=== PATIENT | male | born 1990 | race Caucasian/White ===

== ENCOUNTER 2019-01-09 05:35 | Emergency (ER) | payer OTHER ==
[2019-01-09] MEDS ORDERED: Bacitracin Oint 1 GM U/D Packet TOP ONE (05:47)
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
[2019-01-09 07:17] VITALS: BP 113/46
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
== END 2019-01-09 07:12 ==
LOC: MW.ED 05:35
DX: S01.511A Laceration without foreign body of lip, initial encounter (principal); Z88.1 Allergy status to other antibiotic agents; Z88.0 Allergy status to penicillin; W50.0XXA Accidental hit or strike by another person, initial encounter
CPT/HCPCS: 70150; 70150-26; 70450; 70450-26; 99284-25

== ENCOUNTER 2019-03-22 00:08 | Emergency (ER) | payer OTHER ==
[2019-03-22] MEDS ORDERED: Morphine 2 MG/ML Syringe IVPUSH ONE (00:21)
--- NOTE | 2019-03-22 00:41 | EDM.PDOC ---
ED HPI GENERAL MEDICAL PROBLEM - General Chief Complaint: Upper Extremity Injury/Pain Stated Complaint: INFECTION IN LT ARM Time Seen by Provider: 03/22/19 00:40 Source of Information: Reports: Patient - History of Present Illness INITIAL COMMENTS - FREE TEXT/NARRATIVE: HISTORY AND PHYSICAL: History of present illness: [Patient presents with a small abrasions over his elbows he states that he has been resting his elbows on a rough wooden bar: [place] visiting, he has 2 small 1 cm lesions on each elbow on his right elbow he has a small olecranon bursitis as well as a superficial cellulitis of the skin approximately 2 inches in diameter no fever nausea vomiting chills sweats no exudate for culture Review of systems: As per history of present illness and below otherwise all systems reviewed and negative. Past medical history: As per history of present illness and as reviewed below otherwise noncontributory. Surgical history: As per history of present illness and as reviewed below otherwise noncontributory. Social history: No reported history of drug or alcohol abuse. Family history: As per history of present illness and as reviewed below otherwise noncontributory. Physical exam: HEENT: Atraumatic, normocephalic, pupils reactive, negative for conjunctival pallor or scleral icterus, mucous membranes moist, throat clear, neck supple, nontender, trachea midline. Lungs: Clear to auscultation, breath sounds equal bilaterally, chest nontender. Heart: S1S2, regular, negative for clicks, rubs, or JVD. Abdomen: Soft, nondistended, nontender. Negative for masses or hepatosplenomegaly. Negative for costovertebral tenderness. Pelvis: Stable nontender. Genitourinary: Deferred. Rectal: Deferred. Extremities: Atraumatic, negative for cords or calf pain. Neurovascular unremarkable. Neuro: Awake, alert, oriented. Cranial nerves II through XII unremarkable. Cerebellum unremarkable. Motor and sensory unremarkable throughout. Exam nonfocal. Skin as per history of present illness otherwise unremarkable Diagnostics: [ x-ray right elbow 3 views ] Therapeutics: [ Bactrim double strength by mouth twice a day #20 no refill ] Impression: [ cellulitis Right olecranon bursitis ] Definitive disposition and diagnosis as appropriate pending reevaluation and review of above. Treatments SECTION LEADER: Reports: Acetaminophen right elbow Pain Score (Numeric/FACES): 7 - Related Data Allergies Allergy/AdvReac Type Severity Reaction Status Date / Time amoxicillin Allergy Hives Verified 03/22/19 00:19 Penicillins Allergy Hives Verified 03/22/19 00:19 Home Meds: Home Meds . [No Known Home Meds] 12/27/15 [History] Past Medical History - Past Health History Medical/Surgical History: Denies Medical/Surgical History HEENT History: Reports: None Cardiovascular History: Reports: None Respiratory History: Reports: None Gastrointestinal History: Reports: None Genitourinary History: Reports: None Neurological History: Reports: None Psychiatric History: Reports: None - Infectious Disease History Infectious Disease History: Reports: None - Past Surgical History HEENT Surgical History: Reports: None Musculoskeletal Surgical History: Reports: None Social & Family History - Family History Family Medical History: Noncontributory - Tobacco Use Smoking Status *Q: Never Smoker - Caffeine Use Caffeine Use: Reports: Coffee - Recreational Drug Use Recreational Drug Use: No - Living Situation & Occupation Occupation: Employed Review of Systems - Review of Systems Review Of Systems: See Below ED EXAM, GENERAL - Physical Exam Exam: See Below Course - Vital Signs Last Recorded V/S: Last Vital Signs Temp 98 F 03/22/19 00:12 Pulse 89 03/22/19 00:12 Resp 18 03/22/19 00:12 BP 144/90 H 03/22/19 00:12 Pulse Ox 98 03/22/19 00:12 - Orders/Labs/Meds Orders: Active Orders 24 hr Category Date Time Status Elbow Min 3V Rt [CR] Stat Exams 03/22/19 00:31 Taken Sulfamethoxazole/Trimethoprim [Septra DS] Med 03/22/19 00:54 Once 1 tab PO ONETIME ONE Meds: Medications Discontinued Medications Generic Name Dose Route Start Last Admin Trade Name Freq PRN Reason Stop Dose Admin Morphine Sulfate 2 mg 03/22/19 00:21 Morphine IVPUSH 03/22/19 00:22 ONETIME ONE Departure - Departure Time of Disposition: 00:56 Disposition: Home, Self-Care 01 Condition: Good Clinical Impression: Cellulitis - Discharge Information Referrals: PCP,None [Primary Care Provider] - Forms: ED Department Discharge Additional Instructions: Medication as prescribed Return if symptoms persist or worsen Follow-up with primary care in 2 weeks sooner as needed [facility] - [facility] [address] [place] [id number] The following information is given to patients seen in the emergency department who are being discharged to home. This information is to outline your options for follow-up care. We provide all patients seen in our emergency department with a follow-up referral. The need for follow-up, as well as the timing and circumstances, are variable depending upon the specifics of your emergency department visit. If you don't have a primary care physician on staff, we will provide you with a referral. We always advise you to contact your personal physician following an emergency department visit to inform them of the circumstance of the visit and for follow-up with them and/or the need for any referrals to a consulting specialist. The emergency department will also refer you to a specialist when appropriate. This referral assures that you have the opportunity for follow-up care with a specialist. All of these measure are taken in an effort to provide you with optimal care, which includes your follow-up. Under all circumstances we always encourage you to contact your private physician who remains a resource for coordinating your care. When calling for follow-up care, please make the office aware that this follow-up is from your recent emergency room visit. If for any reason you are refused follow-up, please contact the [facility] emergency department at and asked to speak to the emergency department charge nurse. - My Orders Last 24 Hours: My Active Orders 03/22/19 00:31 Elbow Min 3V Rt [CR] Stat 03/22/19 00:54 Sulfamethoxazole/Trimethoprim [Septra DS] 1 tab PO ONETIME ONE - Assessment/Plan Last 24 Hours: My Active Orders 03/22/19 00:31 Elbow Min 3V Rt [CR] Stat 03/22/19 00:54 Sulfamethoxazole/Trimethoprim [Septra DS] 1 tab PO ONETIME ONE
[2019-03-22] MEDS ORDERED: Sulfamethoxazole/Trimethoprim 800-160 MG Tab PO ONE (00:54)
[2019-03-22 01:15] VITALS: BP 125/72
--- NOTE | 2019-03-22 01:46 | CR ---
INDICATION: Pain and swelling. COMPARISON: None. FINDINGS/IMPRESSION: Right elbow, 3 views. Soft tissue swelling posteriorly and medially. No fracture, dislocation, bony erosion, or other osseous abnormality identified. No evidence of elbow joint effusion. Dictated by Lamin Kearney MD @ 03/22/2019 1:44:42 AM Dictated by: Lamin Kearney MD @ 03/22/2019 01:44:50 (Electronically Signed)
== END 2019-03-22 01:10 | disposition home or self-care (01) ==
LOC: MW.ED 00:08
DX: L03.113 Cellulitis of right upper limb (principal); L03.114 Cellulitis of left upper limb; Z88.1 Allergy status to other antibiotic agents; Z88.0 Allergy status to penicillin
CPT/HCPCS: 73080; 99283; A9270

== ENCOUNTER 2019-03-23 09:12 | Observation (INO) | payer OTHER ==
[2019-03-23] MEDS ORDERED: Sodium Chloride 0.9% 1,000 ML IV SCH ×2 (09:15→11:45)
--- NOTE | 2019-03-23 09:36 | EDM.PDOC ---
ED HPI GENERAL MEDICAL PROBLEM - General Chief Complaint: Upper Extremity Injury/Pain Stated Complaint: INFECTION GOING DOWN ARM Time Seen by Provider: 03/23/19 09:34 Source of Information: Reports: Patient - History of Present Illness INITIAL COMMENTS - FREE TEXT/NARRATIVE: HISTORY AND PHYSICAL: History of present illness: [Patient was seen previously with a small cellulitis involving the right elbow, he has been on 48 hours Bactrim double strength 8-10 with worsening of symptoms no current fever nausea vomiting chills sweats ] Review of systems: As per history of present illness and below otherwise all systems reviewed and negative. Past medical history: As per history of present illness and as reviewed below otherwise noncontributory. Surgical history: As per history of present illness and as reviewed below otherwise noncontributory. Social history: No reported history of drug or alcohol abuse. Family history: As per history of present illness and as reviewed below otherwise noncontributory. Physical exam: HEENT: Atraumatic, normocephalic, pupils reactive, negative for conjunctival pallor or scleral icterus, mucous membranes moist, throat clear, neck supple, nontender, trachea midline. Lungs: Clear to auscultation, breath sounds equal bilaterally, chest nontender. Heart: S1S2, regular, negative for clicks, rubs, or JVD. Abdomen: Soft, nondistended, nontender. Negative for masses or hepatosplenomegaly. Negative for costovertebral tenderness. Pelvis: Stable nontender. Genitourinary: Deferred. Rectal: Deferred. Extremities: Atraumatic, negative for cords or calf pain. Neurovascular unremarkable. Neuro: Awake, alert, oriented. Cranial nerves II through XII unremarkable. Cerebellum unremarkable. Motor and sensory unremarkable throughout. Exam nonfocal. Skin extending down right far forearm, worsening from previous edema present which was not present previously/induration elbow joint is freely movable there is appears to be a small olecranon bursitis associated Diagnostics: [CBC CMP blood cultures 2 ] Therapeutics: [ normal saline Vancomycin 1 g IV ] Impression: [ cellulitis right upper extremity ] Definitive disposition and diagnosis as appropriate pending reevaluation and review of above. Right Elbow Pain Score (Numeric/FACES): 6 - Related Data Allergies Allergy/AdvReac Type Severity Reaction Status Date / Time amoxicillin Allergy Hives Verified 03/23/19 09:21 Penicillins Allergy Hives Verified 03/23/19 09:21 Home Meds: Home Meds Sulfamethoxazole/Trimethoprim [Bactrim Ds Tablet] 1 each PO BID 03/23/19 [ History] Past Medical History - Past Health History Medical/Surgical History: Denies Medical/Surgical History HEENT History: Reports: None Cardiovascular History: Reports: None Respiratory History: Reports: None Gastrointestinal History: Reports: None Genitourinary History: Reports: None Neurological History: Reports: None Psychiatric History: Reports: None Dermatologic History: Reports: Cellulitis - Infectious Disease History Infectious Disease History: Reports: None - Past Surgical History HEENT Surgical History: Reports: None Musculoskeletal Surgical History: Reports: None Social & Family History - Family History Family Medical History: Noncontributory - Tobacco Use Smoking Status *Q: Never Smoker - Caffeine Use Caffeine Use: Reports: None - Recreational Drug Use Recreational Drug Use: No - Living Situation & Occupation Occupation: Employed Review of Systems - Review of Systems Review Of Systems: See Below ED EXAM, GENERAL - Physical Exam Exam: See Below Course - Vital Signs Last Recorded V/S: Last Vital Signs Temp 97.8 F 03/23/19 09:22 Pulse 84 03/23/19 09:22 Resp 18 03/23/19 09:22 BP 130/83 03/23/19 09:22 Pulse Ox 98 03/23/19 09:22 - Orders/Labs/Meds Orders: Active Orders 24 hr Category Date Time Status CULTURE BLOOD [BC] Stat Lab 03/23/19 10:00 Received CULTURE BLOOD [BC] Stat Lab 03/23/19 10:21 Received Sodium Chloride 0.9% [Normal Saline] 1,000 ml Med 03/23/19 09:15 Active IV STAT Blood Culture x2 Reflex Set [OM.PC] Stat Oth 03/23/19 09:15 Ordered Medication Orders Sodium Chloride (Normal Saline) 1,000 mls @ 125 mls/hr IV STAT GHASSAN Last Admin: 03/23/19 09:58 Dose: 125 mls/hr Labs: Laboratory Tests 03/23/19 03/23/19 Range/Units 10:00 10:00 WBC 11.09 H (4.0-11.0) K/uL RBC 4.68 (4.50-5.90) M/uL Hgb 15.1 (13.0-17.0) g/dL Hct 44.2 (38.0-50.0) % MCV 94.4 (80.0-98.0) fL MCH 32.3 H (27.0-32.0) pg MCHC 34.2 (31.0-37.0) g/dL RDW Std Deviation 43.7 (28.0-62.0) fl RDW Coeff of Rylee 13 (11.0-15.0) % Plt Count 107 L (150-400) K/uL MPV 12.10 H (7.40-12.00) fL Neut % (Auto) 76.6 (48.0-80.0) % Lymph % (Auto) 12.7 L (16.0-40.0) % [place] % (Auto) 8.0 (0.0-15.0) % Eos % (Auto) 2.4 (0.0-7.0) % Baso % (Auto) 0.3 (0.0-1.5) % Neut # (Auto) 8.5 H (1.4-5.7) K/uL Lymph # (Auto) 1.4 (0.6-2.4) K/uL [place] # (Auto) 0.9 H (0.0-0.8) K/uL Eos # (Auto) 0.3 (0.0-0.7) K/uL Baso # (Auto) 0.0 (0.0-0.1) K/uL Nucleated RBC % 0.0 /100WBC Nucleated RBCs # 0 K/uL Sodium 136 (136-148) mmol/L Potassium 4.1 (3.5-5.1) mmol/L Chloride 101 (98-107) mmol/L Carbon Dioxide 27.0 (21.0-32.0) mmol/L BUN 11 (7.0-18.0) mg/dL Creatinine 1.0 (0.8-1.3) mg/dL Est Cr Clr Drug Dosing 119.63 mL/min Estimated GFR (MDRD) > 60.0 ml/min Glucose 85 (74-106) mg/dL Calcium 9.4 (8.5-10.1) mg/dL Total Bilirubin 1.1 H (0.2-1.0) mg/dL AST 25 (15-37) IU/L ALT 37 (14-63) IU/L Alkaline Phosphatase 35 L (46-116) U/L Total Protein 8.5 H (6.4-8.2) g/dL Albumin 4.2 (3.4-5.0) g/dL Globulin 4.3 H (2.6-4.0) g/dL Albumin/Globulin Ratio 1.0 (0.9-1.6) Meds: Medications Generic Name Dose Route Start Last Admin Trade Name Freq PRN Reason Stop Dose Admin Sodium Chloride 1,000 mls @ 125 mls/hr 03/23/19 09:15 03/23/19 09:58 Normal Saline IV 125 mls/hr STAT GHASSAN Administration Discontinued Medications Generic Name Dose Route Start Last Admin Trade Name Freq PRN Reason Stop Dose Admin Vancomycin HCl 1 gm/ Sodium 250 mls @ 250 mls/hr 03/23/19 09:26 03/23/19 10: 08 Chloride IV 03/23/19 10:25 Not Given ONETIME ONE Vancomycin HCl 1 gm/ Sodium 250 mls @ 250 mls/hr 03/23/19 09:45 03/23/19 09: 58 Chloride IV 03/23/19 10:44 250 mls/hr ONETIME ONE Administration Sodium Chloride Confirm 03/23/19 09:41 03/23/19 10:08 Normal Saline Administered 03/23/19 09:42 Not Given Dose 250 mls @ as directed .ROUTE .STK-MED ONE Vancomycin HCl Confirm 03/23/19 09:39 03/23/19 10:08 Vancomycin Administered 03/23/19 09:40 Not Given Dose 1 gm .ROUTE .STK-MED ONE Departure - Departure Time of Disposition: 11:33 Disposition: Refer to Observation Condition: Fair Clinical Impression: Cellulitis - Discharge Information Referrals: PCP,None [Primary Care Provider] - Forms: ED Department Discharge - My Orders Last 24 Hours: My Active Orders 03/23/19 09:15 Sodium Chloride 0.9% [Normal Saline] 1,000 ml IV STAT Blood Culture x2 Reflex Set [OM.PC] Stat 03/23/19 10:00 CULTURE BLOOD [BC] Stat 03/23/19 10:21 CULTURE BLOOD [BC] Stat - Assessment/Plan Last 24 Hours: My Active Orders 03/23/19 09:15 Sodium Chloride 0.9% [Normal Saline] 1,000 ml IV STAT Blood Culture x2 Reflex Set [OM.PC] Stat 03/23/19 10:00 CULTURE BLOOD [BC] Stat 03/23/19 10:21 CULTURE BLOOD [BC] Stat
[2019-03-23] MEDS ORDERED: Vancomycin 1 GM SDV ONE (09:39)
[2019-03-23] MEDS ORDERED: Sodium Chloride 0.9% 250 ML ONE (09:41)
[2019-03-23 10:37] LABS: CHLORIDE,CL 101 mmol/L (98-107); SODIUM,NA 136 mmol/L (136-148)
--- NOTE | 2019-03-23 11:41 | PCM.HP ---
H&P History of Present Illness - General Date of Service: 03/23/19 Admit Problem/Dx: Admission Diagnosis/Problem Admission Diagnosis/Problem Cellulitis Source of Information: Patient History Limitations: Reports: No Limitations - History of Present Illness Initial Comments - Free Text/Narative: The patient is an otherwise healthy 28-year-old gentleman who had presented to the emergency department today with a complaint of swelling, redness and tenderness of his right arm. Several days ago the patient had an area small cellulitis involving his right elbow. He reportedly had gone swimming in a river in [place]. The patient also had been on 48 hours of double strength Bactrim. The patient says this has been getting worse. The patient had an area on his elbow demarcated with pen and the edema has gone more distally. The patient has denied any fever or chills. He has been in good health otherwise and has not been taking any other medications chronically. Onset of Symptoms: Reports: Gradual Duration of Symptoms: Reports: Day(s):, Getting Worse Location: Reports: Upper Extremity, Right Quality: Reports: Ache, Stabbing Severity: Moderate Improves with: Reports: Rest Worsens with: Reports: Movement Associated Symptoms: Reports: No Other Symptoms Right Elbow Pain Score (Numeric/FACES): 6 - Related Data Allergies/Adverse Reactions: Allergies Allergy/AdvReac Type Severity Reaction Status Date / Time amoxicillin Allergy Hives Verified 03/23/19 09:21 Penicillins Allergy Hives Verified 03/23/19 09:21 Home Medications: Home Meds Sulfamethoxazole/Trimethoprim [Bactrim Ds Tablet] 1 each PO BID 03/23/19 [ History] Past Medical History - Past Health History Medical/Surgical History: Denies Medical/Surgical History HEENT History: Reports: None Cardiovascular History: Reports: None Respiratory History: Reports: None Gastrointestinal History: Reports: None Genitourinary History: Reports: None Neurological History: Reports: None Psychiatric History: Reports: None Dermatologic History: Reports: Cellulitis - Infectious Disease History Infectious Disease History: Reports: None - Past Surgical History HEENT Surgical History: Reports: None Musculoskeletal Surgical History: Reports: None Social & Family History - Family History Family Medical History: Noncontributory - Tobacco Use Smoking Status *Q: Never Smoker - Caffeine Use Caffeine Use: Reports: None - Recreational Drug Use Recreational Drug Use: No - Living Situation & Occupation Occupation: Employed H&P Review of Systems - Review of Systems: Review Of Systems: See Below General: Reports: No Symptoms HEENT: Reports: No Symptoms Pulmonary: Reports: No Symptoms Cardiovascular: Reports: No Symptoms Gastrointestinal: Reports: No Symptoms Genitourinary: Reports: No Symptoms Musculoskeletal: Reports: Arm Pain Skin: Reports: Erythema Psychiatric: Reports: No Symptoms Neurological: Reports: No Symptoms Hematologic/Lymphatic: Reports: No Symptoms Immunologic: Reports: No Symptoms Exam - Exam Exam: See Below - Vital Signs Vital Signs: Last Vital Signs Temp 36.6 C 03/23/19 09:22 Pulse 84 03/23/19 09:22 Resp 18 03/23/19 09:22 BP 130/83 03/23/19 09:22 Pulse Ox 98 03/23/19 09:22 Weight: 90.718 kg - Exam Quality Assessment: No: Supplemental Oxygen General: Alert, Oriented, Cooperative HEENT: Conjunctiva Clear, EACs Clear, EOMI, Mucosa Moist & [place], Pupils Equal, PERRLA Neck: Supple, Trachea Midline Lungs: Clear to Auscultation, Normal Respiratory Effort Cardiovascular: Regular Rate, Regular Rhythm GI/Abdominal Exam: Normal Bowel Sounds, Soft, No Distention Back Exam: Normal Inspection, Full Range of Motion Extremities: Joint Swelling (Right elbow, olecranon process), Arm Pain, Increased Warmth. No: Normal Inspection Skin: Other (Area cellulitis right elbow) Neurological: Cranial Nerves Intact Neuro Extensive - Mental Status: Alert, Oriented x3 Psychiatric: Alert, Normal Affect, Normal Mood - Patient Data Lab Results Last 24 hrs: Laboratory Results - last 24 hr 03/23/19 03/23/19 Range/Units 10:00 10:00 WBC 11.09 H (4.0-11.0) K/uL RBC 4.68 (4.50-5.90) M/uL Hgb 15.1 (13.0-17.0) g/dL Hct 44.2 (38.0-50.0) % MCV 94.4 (80.0-98.0) fL MCH 32.3 H (27.0-32.0) pg MCHC 34.2 (31.0-37.0) g/dL RDW Std Deviation 43.7 (28.0-62.0) fl RDW Coeff of Rylee 13 (11.0-15.0) % Plt Count 107 L (150-400) K/uL MPV 12.10 H (7.40-12.00) fL Neut % (Auto) 76.6 (48.0-80.0) % Lymph % (Auto) 12.7 L (16.0-40.0) % [place] % (Auto) 8.0 (0.0-15.0) % Eos % (Auto) 2.4 (0.0-7.0) % Baso % (Auto) 0.3 (0.0-1.5) % Neut # (Auto) 8.5 H (1.4-5.7) K/uL Lymph # (Auto) 1.4 (0.6-2.4) K/uL [place] # (Auto) 0.9 H (0.0-0.8) K/uL Eos # (Auto) 0.3 (0.0-0.7) K/uL Baso # (Auto) 0.0 (0.0-0.1) K/uL Nucleated RBC % 0.0 /100WBC Nucleated RBCs # 0 K/uL Sodium 136 (136-148) mmol/L Potassium 4.1 (3.5-5.1) mmol/L Chloride 101 (98-107) mmol/L Carbon Dioxide 27.0 (21.0-32.0) mmol/L BUN 11 (7.0-18.0) mg/dL Creatinine 1.0 (0.8-1.3) mg/dL Est Cr Clr Drug Dosing 119.63 mL/min Estimated GFR (MDRD) > 60.0 ml/min Glucose 85 (74-106) mg/dL Calcium 9.4 (8.5-10.1) mg/dL Total Bilirubin 1.1 H (0.2-1.0) mg/dL AST 25 (15-37) IU/L ALT 37 (14-63) IU/L Alkaline Phosphatase 35 L (46-116) U/L Total Protein 8.5 H (6.4-8.2) g/dL Albumin 4.2 (3.4-5.0) g/dL Globulin 4.3 H (2.6-4.0) g/dL Albumin/Globulin Ratio 1.0 (0.9-1.6) Result Diagrams: 03/23/19 10:00 03/23/19 10:00 - Problem List (1) Cellulitis SNOMED Code(s): 460998252 ICD Code: L03.90 - CELLULITIS, UNSPECIFIED Status: Acute Priority: High Current Visit: Yes Qualifiers: Site of cellulitis: extremity Site of cellulitis of extremity: upper extremity Laterality: right Qualified Code(s): L03.113 - Cellulitis of right upper limb (2) Thrombocytopenia SNOMED Code(s): 787443223 ICD Code: D69.6 - THROMBOCYTOPENIA, UNSPECIFIED Status: Acute Priority: High Current Visit: Yes Problem List Initiated/Reviewed/Updated: Yes Orders Last 24hrs: Active Orders 24 hr Category Date Time Status Admission Status [Patient Status] [ADT] Stat ADT 03/23/19 11:33 Active CULTURE BLOOD [BC] Stat Lab 03/23/19 10:00 Received CULTURE BLOOD [BC] Stat Lab 03/23/19 10:21 Received Sodium Chloride 0.9% [Normal Saline] 1,000 ml Med 03/23/19 09:15 Active IV STAT Blood Culture x2 Reflex Set [OM.PC] Stat Oth 03/23/19 09:15 Ordered Medication Orders Sodium Chloride (Normal Saline) 1,000 mls @ 125 mls/hr IV STAT GHASSAN Last Admin: 03/23/19 09:58 Dose: 125 mls/hr Assessment/Plan Comment:: The patient is an otherwise healthy 28-year-old gentleman who will be admitted under observation secondary to failed outpatient treatment with regards to cellulitis of his right elbow. The patient does not have any signs or symptoms which would be consistent with necrotizing fasciitis or sepsis at this point. The patient was started on vancomycin and this will be continued. We'll order pharmacy to dose. I've ordered repeat laboratory studies. The patient will also be monitored with regards to his thrombocytopenia as that this might have been caused by the patient's use of Bactrim. The patient will also be kept on DVT prophylaxis with the use of SCDs. This is secondary to the patient's thrombocytopenia. The patient is encouraged to ambulate.
[2019-03-23] MEDS ORDERED: Ondansetron 4 MG Tab.DIS PO PRN (11:45)
[2019-03-23] MEDS ORDERED: Morphine 2 MG/ML Syringe IVPUSH PRN (11:45)
[2019-03-23] MEDS ORDERED: Acetaminophen 325 MG Tab PO PRN (11:45)
[2019-03-23] MEDS: Nicotine 14 MG/24 Hr Patch TRDERM SCH (13:24)
[2019-03-23] MEDS: oxyCODONE 5 MG Tab PO PRN ×3 (14:26→23:39)
[2019-03-23] MEDS: Vancomycin 1.5 GM in Sodium Chloride 0.9% 500 ML IV SCH (21:36)
[2019-03-24] MEDS: Vancomycin 1.5 GM in Sodium Chloride 0.9% 500 ML IV SCH (04:13)
[2019-03-24 06:04] LABS: CHLORIDE,CL 102 mmol/L (98-107); SODIUM,NA 136 mmol/L (136-148)
--- NOTE | 2019-03-24 08:12 | PCM.PN ---
- Patient Data Vitals - Most Recent: Last Vital Signs Temp 36.6 C 03/24/19 04:00 Pulse 83 03/24/19 04:00 Resp 17 03/24/19 04:00 BP 116/58 L 03/24/19 04:00 Pulse Ox 94 L 03/24/19 04:00 Weight - Most Recent: 99.019 kg I&O - Last 24 Hours: Intake & Output 03/23/19 03/24/19 03/24/19 22:59 06:59 14:59 Intake Total 2083 3167 Output Total 6090 1515 Balance 411 442 Lab Results Last 24 Hours: Laboratory Results - last 24 hr 03/23/19 03/23/19 03/23/19 Range/Units 10:00 10:00 10:00 WBC 11.09 H (4.0-11.0) K/uL RBC 4.68 (4.50-5.90) M/uL Hgb 15.1 (13.0-17.0) g/dL Hct 44.2 (38.0-50.0) % MCV 94.4 (80.0-98.0) fL MCH 32.3 H (27.0-32.0) pg MCHC 34.2 (31.0-37.0) g/dL RDW Std Deviation 43.7 (28.0-62.0) fl RDW Coeff of Rylee 13 (11.0-15.0) % Plt Count 107 L (150-400) K/uL MPV 12.10 H (7.40-12.00) fL Neut % (Auto) 76.6 (48.0-80.0) % Lymph % (Auto) 12.7 L (16.0-40.0) % [place] % (Auto) 8.0 (0.0-15.0) % Eos % (Auto) 2.4 (0.0-7.0) % Baso % (Auto) 0.3 (0.0-1.5) % Neut # (Auto) 8.5 H (1.4-5.7) K/uL Lymph # (Auto) 1.4 (0.6-2.4) K/uL [place] # (Auto) 0.9 H (0.0-0.8) K/uL Eos # (Auto) 0.3 (0.0-0.7) K/uL Baso # (Auto) 0.0 (0.0-0.1) K/uL Nucleated RBC % 0.0 /100WBC Nucleated RBCs # 0 K/uL ESR 13 (0-14) mm/hr Sodium 136 (136-148) mmol/L Potassium 4.1 (3.5-5.1) mmol/L Chloride 101 (98-107) mmol/L Carbon Dioxide 27.0 (21.0-32.0) mmol/L BUN 11 (7.0-18.0) mg/dL Creatinine 1.0 (0.8-1.3) mg/dL Est Cr Clr Drug Dosing 119.63 mL/min Estimated GFR (MDRD) > 60.0 ml/min Glucose 85 (74-106) mg/dL Calcium 9.4 (8.5-10.1) mg/dL Total Bilirubin 1.1 H (0.2-1.0) mg/dL AST 25 (15-37) IU/L ALT 37 (14-63) IU/L Alkaline Phosphatase 35 L (46-116) U/L Total Protein 8.5 H (6.4-8.2) g/dL Albumin 4.2 (3.4-5.0) g/dL Globulin 4.3 H (2.6-4.0) g/dL Albumin/Globulin Ratio 1.0 (0.9-1.6) 03/24/19 03/24/19 Range/Units 05:08 05:08 WBC 10.09 (4.0-11.0) K/uL RBC 4.33 L (4.50-5.90) M/uL Hgb 13.8 (13.0-17.0) g/dL Hct 41.5 (38.0-50.0) % MCV 95.8 (80.0-98.0) fL MCH 31.9 (27.0-32.0) pg MCHC 33.3 (31.0-37.0) g/dL RDW Std Deviation 44.7 (28.0-62.0) fl RDW Coeff of Rylee 13 (11.0-15.0) % Plt Count 186 (150-400) K/uL MPV 10.40 (7.40-12.00) fL Neut % (Auto) 66.8 (48.0-80.0) % Lymph % (Auto) 21.1 (16.0-40.0) % [place] % (Auto) 8.2 (0.0-15.0) % Eos % (Auto) 3.6 (0.0-7.0) % Baso % (Auto) 0.3 (0.0-1.5) % Neut # (Auto) 6.7 H (1.4-5.7) K/uL Lymph # (Auto) 2.1 (0.6-2.4) K/uL [place] # (Auto) 0.8 (0.0-0.8) K/uL Eos # (Auto) 0.4 (0.0-0.7) K/uL Baso # (Auto) 0.0 (0.0-0.1) K/uL Nucleated RBC % 0.0 /100WBC Nucleated RBCs # 0 K/uL ESR (0-14) mm/hr Sodium 136 (136-148) mmol/L Potassium 3.9 (3.5-5.1) mmol/L Chloride 102 (98-107) mmol/L Carbon Dioxide 25.3 (21.0-32.0) mmol/L BUN 10 (7.0-18.0) mg/dL Creatinine 1.0 (0.8-1.3) mg/dL Est Cr Clr Drug Dosing 119.63 mL/min Estimated GFR (MDRD) > 60.0 ml/min Glucose 102 (74-106) mg/dL Calcium 8.7 (8.5-10.1) mg/dL Total Bilirubin 0.7 (0.2-1.0) mg/dL AST 13 L (15-37) IU/L ALT 28 (14-63) IU/L Alkaline Phosphatase 28 L (46-116) U/L Total Protein 7.1 (6.4-8.2) g/dL Albumin 3.3 L (3.4-5.0) g/dL Globulin 3.8 (2.6-4.0) g/dL Albumin/Globulin Ratio 0.9 (0.9-1.6) Med Orders - Current: Current Medications Acetaminophen (Tylenol) 650 mg PO Q4H PRN PRN Reason: Pain (Mild 1-3)/fever Last Admin: 03/23/19 17:03 Dose: 325 mg Vancomycin HCl 1.5 gm/ Sodium (Chloride) 500 mls @ 333.333 mls/hr IV Q8H GHASSAN Last Admin: 03/24/19 04:13 Dose: 333.333 mls/hr Morphine Sulfate (Morphine) 2 mg IVPUSH Q2H PRN PRN Reason: Pain (severe 7-10) Stop: 03/24/19 11:47 Nicotine (Habitrol) 14 mg TRDERM DAILY [facility] Last Admin: 03/23/19 13:24 Dose: 14 mg Ondansetron HCl (Zofran Odt) 4 mg PO Q6H PRN PRN Reason: nausea, able to take PO Oxycodone HCl (Oxycodone) 5 mg PO Q4H PRN PRN Reason: Pain (moderate 4-6) Last Admin: 03/23/19 23:39 Dose: 5 mg Vancomycin HCl (Pharmacy To Dose - Vancomycin) 1 dose .XX ASDIRECTED [facility] Discontinued Medications Sodium Chloride (Normal Saline) 1,000 mls @ 125 mls/hr IV STAT [facility] Last Admin: 03/23/19 09:58 Dose: 125 mls/hr Vancomycin HCl 1 gm/ Sodium (Chloride) 250 mls @ 250 mls/hr IV ONETIME ONE Stop: 03/23/19 10:25 Last Admin: 03/23/19 10:08 Dose: Not Given Vancomycin HCl 1 gm/ Sodium (Chloride) 250 mls @ 250 mls/hr IV ONETIME ONE Stop: 03/23/19 10:44 Last Admin: 03/23/19 09:58 Dose: 250 mls/hr Sodium Chloride (Normal Saline) Confirm Administered Dose 250 mls @ as directed .ROUTE .STK-MED ONE Stop: 03/23/19 09:42 Last Admin: 03/23/19 10:08 Dose: Not Given Sodium Chloride (Normal Saline) 1,000 mls @ 100 mls/hr IV ASDIRECTED [facility] Stop: 03/24/19 00:12 Last Admin: 03/23/19 18:18 Dose: 100 mls/hr Vancomycin HCl (Vancomycin) Confirm Administered Dose 1 gm .ROUTE .STK-MED ONE Stop: 03/23/19 09:40 Last Admin: 03/23/19 10:08 Dose: Not Given - Problem List & Annotations (1) Cellulitis SNOMED Code(s): 609177643 Code(s): L03.90 - CELLULITIS, UNSPECIFIED Status: Acute Priority: High Current Visit: Yes Qualifiers: Site of cellulitis: extremity Site of cellulitis of extremity: upper extremity Laterality: right Qualified Code(s): L03.113 - Cellulitis of right upper limb (2) Thrombocytopenia SNOMED Code(s): 551799197 Code(s): D69.6 - THROMBOCYTOPENIA, UNSPECIFIED Status: Acute Priority: High Current Visit: Yes - My Orders Last 24 Hours: My Active Orders 03/23/19 11:45 Oxygen Therapy [RC] PRN Up ad Leeanna [RC] ASDIRECTED VTE/DVT Education [RC] PER UNIT ROUTINE Vital Signs [RC] Q4H Acetaminophen [Tylenol] 650 mg PO Q4H PRN Morphine 2 mg IVPUSH Q2H PRN Ondansetron [Zofran ODT] 4 mg PO Q6H PRN oxyCODONE 5 mg PO Q4H PRN VTE Pharmacological Contraindications [AST] Per Unit Routine Resuscitation Status Routine 03/23/19 11:46 Antiembolic Devices [RC] PER UNIT ROUTINE Sequential Compression Device [OM.PC] Per Unit Routine 03/23/19 13:00 Nicotine [Habitrol] 14 mg TRDERM DAILY 03/23/19 20:15 Pharmacy to Dose - Vancomycin 1 dose .XX ASDIRECTED 03/23/19 20:30 Vancomycin 1.5 gm Sodium Chloride 0.9% [Normal Saline] 500 ml IV Q8H 03/23/19 Dinner Regular Diet [DIET] - Plan Plan:: The patient is an otherwise healthy 28-year-old gentleman who will be admitted under observation secondary to failed outpatient treatment with regards to cellulitis of his right elbow. The patient does not have any signs or symptoms which would be consistent with necrotizing fasciitis or sepsis at this point. The patient was started on vancomycin and this will be continued. We'll order pharmacy to dose. I've ordered repeat laboratory studies. The patient will also be monitored with regards to his thrombocytopenia as that this might have been caused by the patient's use of Bactrim. The patient will also be kept on DVT prophylaxis with the use of SCDs. This is secondary to the patient's thrombocytopenia. The patient is encouraged to ambulate.
[2019-03-24] MEDS ORDERED: Linezolid 600 MG in Premix Bag 1 BAG IV SCH (08:15)
[2019-03-24] MEDS: Nicotine 14 MG/24 Hr Patch TRDERM SCH (08:30)
[2019-03-24] MEDS: oxyCODONE 5 MG Tab PO PRN (08:30)
--- NOTE | 2019-03-24 13:17 | PCM.DCSUM1 ---
Discharge Summary - Hospital Course Diagnosis: Stroke: No - Discharge Data Discharge Date: 03/24/19 Discharge Disposition: Home, Self-Care 01 Condition: Good - Discharge Diagnosis/Problem(s) (1) Cellulitis SNOMED Code(s): 221750591 ICD Code: L03.90 - CELLULITIS, UNSPECIFIED Status: Acute Priority: High Qualifiers: Site of cellulitis: extremity Site of cellulitis of extremity: upper extremity Laterality: right Qualified Code(s): L03.113 - Cellulitis of right upper limb (2) Thrombocytopenia SNOMED Code(s): 291175808 ICD Code: D69.6 - THROMBOCYTOPENIA, UNSPECIFIED Status: Acute Priority: High - Patient Summary/Data Hospital Course: The patient is a 28-year-old gentleman who had presented to the emergency department after failing outpatient treatment for cellulitis of his right elbow. [facility] [place] and had developed an infection and had been placed on Bactrim which did not help. Patient was admitted and started on vancomycin. The patient had tolerated the vancomycin without difficulty. Initially the patient's white blood cell count was mildly elevated at 11,000 and this had normalized by day of discharge. The patient was also noted to have thrombocytopenia which was likely secondary to the Bactrim. This had normalized by day of discharge. The patient had overall improvement in terms of erythema, induration and tenderness on examination. The patient's vital signs have been otherwise stable. He continued to improve rapidly throughout the short course of hospitalization. The patient was transitioned to Zyvox and he had tolerated this well. The patient had been given a prescription for Zyvox 600 mg by mouth twice a day. The patient had been recommended continue with his diet as tolerated. He is to have activity as tolerated. The patient will be discharged to follow-up with primary care physician. He has been hemodynamically stable and he is discharged with the recommendations listed above. - Patient Instructions Diet: Heart Healthy Diet Activity: As Tolerated Notify Provider of: Fever, Increased Pain - Discharge Plan *PRESCRIPTION DRUG MONITORING PROGRAM REVIEWED*: No *COPY OF PRESCRIPTION DRUG MONITORING REPORT IN PATIENT MILDRED: No Prescriptions/Med Rec: Linezolid [Zyvox] 600 mg PO Q12H #20 tab Home Medications: Home Meds Linezolid [Zyvox] 600 mg PO Q12H #20 tab 03/24/19 [Rx] Oxygen Therapy Mode: Room Air Patient Handouts: Linezolid tablets, Cellulitis, Adult, [id number] Referrals: Sariah Montoya DO [Resident] - 04/02/19 2:30 pm - Discharge Summary/Plan Comment DC Time >30 min.: Yes - General Info Date of Service: 03/24/19 Admission Dx/Problem (Free Text: Admission Diagnosis/Problem Admission Diagnosis/Problem Cellulitis right elbow Functional Status: Reports: Pain Controlled - Review of Systems General: Reports: No Symptoms HEENT: Reports: No Symptoms Pulmonary: Reports: No Symptoms Cardiovascular: Reports: No Symptoms Gastrointestinal: Reports: No Symptoms Genitourinary: Reports: No Symptoms Musculoskeletal: Reports: Arm Pain Skin: Reports: No Symptoms Neurological: Reports: No Symptoms Psychiatric: Reports: No Symptoms - Patient Data Vitals - Most Recent: Last Vital Signs Temp 36.7 C 03/24/19 07:30 Pulse 80 03/24/19 07:30 Resp 16 03/24/19 07:30 BP 111/68 03/24/19 07:30 Pulse Ox 95 03/24/19 07:30 Weight - Most Recent: 99.019 kg I&O - Last 24 hours: Intake & Output 03/23/19 03/24/19 03/24/19 22:59 06:59 14:59 Intake Total 2086 3167 300 Output Total 1678 2725 Balance 411 442 300 Lab Results - Last 24 hrs: Laboratory Results - last 24 hr 03/24/19 03/24/19 Range/Units 05:08 05:08 WBC 10.09 (4.0-11.0) K/uL RBC 4.33 L (4.50-5.90) M/uL Hgb 13.8 (13.0-17.0) g/dL Hct 41.5 (38.0-50.0) % MCV 95.8 (80.0-98.0) fL MCH 31.9 (27.0-32.0) pg MCHC 33.3 (31.0-37.0) g/dL RDW Std Deviation 44.7 (28.0-62.0) fl RDW Coeff of Rylee 13 (11.0-15.0) % Plt Count 186 (150-400) K/uL MPV 10.40 (7.40-12.00) fL Neut % (Auto) 66.8 (48.0-80.0) % Lymph % (Auto) 21.1 (16.0-40.0) % [place] % (Auto) 8.2 (0.0-15.0) % Eos % (Auto) 3.6 (0.0-7.0) % Baso % (Auto) 0.3 (0.0-1.5) % Neut # (Auto) 6.7 H (1.4-5.7) K/uL Lymph # (Auto) 2.1 (0.6-2.4) K/uL [place] # (Auto) 0.8 (0.0-0.8) K/uL Eos # (Auto) 0.4 (0.0-0.7) K/uL Baso # (Auto) 0.0 (0.0-0.1) K/uL Nucleated RBC % 0.0 /100WBC Nucleated RBCs # 0 K/uL Sodium 136 (136-148) mmol/L Potassium 3.9 (3.5-5.1) mmol/L Chloride 102 (98-107) mmol/L Carbon Dioxide 25.3 (21.0-32.0) mmol/L BUN 10 (7.0-18.0) mg/dL Creatinine 1.0 (0.8-1.3) mg/dL Est Cr Clr Drug Dosing 119.63 mL/min Estimated GFR (MDRD) > 60.0 ml/min Glucose 102 (74-106) mg/dL Calcium 8.7 (8.5-10.1) mg/dL Total Bilirubin 0.7 (0.2-1.0) mg/dL AST 13 L (15-37) IU/L ALT 28 (14-63) IU/L Alkaline Phosphatase 28 L (46-116) U/L Total Protein 7.1 (6.4-8.2) g/dL Albumin 3.3 L (3.4-5.0) g/dL Globulin 3.8 (2.6-4.0) g/dL Albumin/Globulin Ratio 0.9 (0.9-1.6) LUCY Results - Last 24 hrs: Microbiology 03/23/19 10:21 Aerobic Blood Culture - Preliminary Blood - Venous - Lab Draw NO GROWTH AFTER 1 DAY Anaerobic Blood Culture - Preliminary NO GROWTH AFTER 1 DAY 03/23/19 10:00 Aerobic Blood Culture - Preliminary Blood - Venous NO GROWTH AFTER 1 DAY Anaerobic Blood Culture - Preliminary NO GROWTH AFTER 1 DAY Med Orders - Current: Current Medications Acetaminophen (Tylenol) 650 mg PO Q4H PRN PRN Reason: Pain (Mild 1-3)/fever Last Admin: 03/23/19 17:03 Dose: 325 mg Linezolid 600 mg/ Premix 300 mls @ 300 mls/hr IV Q12H [facility] Last Admin: 03/24/19 08:29 Dose: 300 mls/hr Nicotine (Habitrol) 14 mg TRDERM DAILY [facility] Last Admin: 03/24/19 08:30 Dose: 14 mg Ondansetron HCl (Zofran Odt) 4 mg PO Q6H PRN PRN Reason: nausea, able to take PO Oxycodone HCl (Oxycodone) 5 mg PO Q4H PRN PRN Reason: Pain (moderate 4-6) Last Admin: 03/24/19 08:30 Dose: 5 mg Discontinued Medications Sodium Chloride (Normal Saline) 1,000 mls @ 125 mls/hr IV STAT [facility] Last Admin: 03/23/19 09:58 Dose: 125 mls/hr Vancomycin HCl 1 gm/ Sodium (Chloride) 250 mls @ 250 mls/hr IV ONETIME ONE Stop: 03/23/19 10:25 Last Admin: 03/23/19 10:08 Dose: Not Given Vancomycin HCl 1 gm/ Sodium (Chloride) 250 mls @ 250 mls/hr IV ONETIME ONE Stop: 03/23/19 10:44 Last Admin: 03/23/19 09:58 Dose: 250 mls/hr Sodium Chloride (Normal Saline) Confirm Administered Dose 250 mls @ as directed .ROUTE .STK-MED ONE Stop: 03/23/19 09:42 Last Admin: 03/23/19 10:08 Dose: Not Given Sodium Chloride (Normal Saline) 1,000 mls @ 100 mls/hr IV ASDIRECTED [facility] Stop: 03/24/19 00:12 Last Admin: 03/23/19 18:18 Dose: 100 mls/hr Vancomycin HCl 1.5 gm/ Sodium (Chloride) 500 mls @ 333.333 mls/hr IV Q8H [facility] Last Admin: 03/24/19 04:13 Dose: 333.333 mls/hr Morphine Sulfate (Morphine) 2 mg IVPUSH Q2H PRN PRN Reason: Pain (severe 7-10) Stop: 03/24/19 11:47 Vancomycin HCl (Vancomycin) Confirm Administered Dose 1 gm .ROUTE .STK-MED ONE Stop: 03/23/19 09:40 Last Admin: 03/23/19 10:08 Dose: Not Given - Exam Quality Assessment: Denies: Supplemental Oxygen General: Reports: Alert, Oriented, Cooperative, No Acute Distress HEENT: Reports: Pupils Equal, Pupils Reactive, EOMI, Mucous Membr. Moist/Wilsey Neck: Reports: Supple, Trachea Midline Lungs: Reports: Clear to Auscultation, Normal Respiratory Effort Cardiovascular: Reports: Regular Rate, Regular Rhythm GI/Abdominal Exam: Normal Bowel Sounds, Soft, No Distention Back Exam: Reports: Normal Inspection, Full Range of Motion Extremities: Arm Pain (Right elbow). No: Increased Warmth (Good range of motion ) Skin: Reports: Warm, Dry, Intact Neurological: Reports: No New Focal Deficit Psy/Mental Status: Reports: Alert, Normal Affect, Normal Mood *Q Meaningful Use (DIS) - VTE *Q VTE Pharmacological Contraindications *Q: Thrombocytopenia
[2019-03-24 13:29] VITALS: BP 120/66
--- NOTE | 2019-03-24 16:53 | CR ---
EXAMINATION: Right elbow HISTORY: Cellulitis COMPARISON: 03/22/2019 TECHNIQUE: 3 views FINDINGS/IMPRESSION: Soft tissue swelling noted over the dorsal aspect of the elbow without an acute osseous abnormality. Bone mineralization and joint spaces are preserved. No joint effusion.
== END 2019-03-24 13:40 | disposition home or self-care (01) ==
LOC: MW.ED 09:12 → MW.MS 11:36
PROVIDERS: ADMIT Internal Medicine; ATTEND Internal Medicine
DX: L03.113 Cellulitis of right upper limb (principal); D69.6 Thrombocytopenia, unspecified; Z88.0 Allergy status to penicillin
CPT/HCPCS: 36415; 73080; 80053; 85025; 85652; 87040; 96361; 96365; 96366; 96367; 99284; A4217; A9270; G0378; J2020; J3370; J7040; J7050; 99282

== ENCOUNTER 2019-08-21 13:12 | Emergency (ER) | payer BC, OTHER ==
[2019-08-21 13:30] VITALS: BP 131/98; PULSE 64
[2019-08-21] MEDS ORDERED: Lidocaine 1% 10 ML MDV INJECT ONE (13:43)
--- NOTE | 2019-08-21 14:12 | EDM.PDOC ---
ED HPI GENERAL MEDICAL PROBLEM - General Chief Complaint: Laceration Stated Complaint: LACERATION RIGHT LEG Time Seen by Provider: 08/21/19 13:33 - History of Present Illness INITIAL COMMENTS - FREE TEXT/NARRATIVE: HISTORY AND PHYSICAL: History of present illness: Patient 29-year-old white male presents concerned laceration to his right thigh this occurred when he was using field dressing deer he denies other trauma concern and is up-to-date on his tetanus Review of systems: As per history of present illness and below otherwise all systems reviewed and negative. Past medical history: As per history of present illness and as reviewed below otherwise noncontributory. Surgical history: As per history of present illness and as reviewed below otherwise noncontributory. Social history: No reported history of drug or alcohol abuse. Family history: As per history of present illness and as reviewed below otherwise noncontributory. Physical exam: HEENT: Atraumatic, normocephalic, pupils reactive, negative for conjunctival pallor or scleral icterus, mucous membranes moist, throat clear, neck supple, nontender, trachea midline. Lungs: Clear to auscultation, breath sounds equal bilaterally, chest nontender. Heart: S1S2, regular, negative for clicks, rubs, or JVD. Abdomen: Soft, nondistended, nontender. Negative for masses or hepatosplenomegaly. Negative for costovertebral tenderness. Pelvis: Stable nontender. Genitourinary: Deferred. Rectal: Deferred. Extremities: Patient has approximately 3 cm moderate depth laceration to medial aspect of his distal right thigh was good hemostasis noted foreign-body neurovascular exam CMS is unremarkable Neuro: Awake, alert, oriented. Cranial nerves II through XII unremarkable. Cerebellum unremarkable. Motor and sensory unremarkable throughout. Exam nonfocal. Diagnostics: None Therapeutics: Patient was anesthetized with 1% lidocaine without epinephrine irrigated copious amounts 0.9 normal saline prepped and draped in sterile manner closed with 4-0 nylon interrupted suture and dressed with bacitracin Impression: #1 laceration right thigh Definitive disposition and diagnosis as appropriate pending reevaluation and review of above. Right Upper Leg Pain Score (Numeric/FACES): 5 - Related Data Allergies Allergy/AdvReac Type Severity Reaction Status Date / Time amoxicillin Allergy Hives Verified 08/21/19 13:26 Penicillins Allergy Hives Verified 08/21/19 13:26 Home Meds: Home Meds . [No Known Home Meds] 08/21/19 [History] Past Medical History - Past Health History Medical/Surgical History: Denies Medical/Surgical History HEENT History: Reports: None Cardiovascular History: Reports: None Respiratory History: Reports: None Gastrointestinal History: Reports: None Genitourinary History: Reports: None Neurological History: Reports: None Psychiatric History: Reports: None Dermatologic History: Reports: Cellulitis - Infectious Disease History Infectious Disease History: Reports: None - Past Surgical History HEENT Surgical History: Reports: None Musculoskeletal Surgical History: Reports: None Social & Family History - Family History Family Medical History: Noncontributory - Tobacco Use Smoking Status *Q: Never Smoker Second Hand Smoke Exposure: No - Caffeine Use Caffeine Use: Reports: Coffee - Recreational Drug Use Recreational Drug Use: No - Living Situation & Occupation Occupation: Employed ED ROS GENERAL - Review of Systems Review Of Systems: Comprehensive ROS is negative, except as noted in HPI. ED EXAM, SKIN/RASH Exam: See Below (See dictation) Course - Vital Signs Last Recorded V/S: Last Vital Signs Temp 36.6 C 08/21/19 13:27 Pulse 64 08/21/19 13:27 Resp 16 08/21/19 13:27 BP 131/98 H 08/21/19 13:27 Pulse Ox 97 08/21/19 13:27 - Orders/Labs/Meds Meds: Medications Discontinued Medications Generic Name Dose Route Start Last Admin Trade Name Dea PRN Reason Stop Dose Admin Lidocaine HCl 10 ml 08/21/19 13:43 Xylocaine 1% INJECT 08/21/19 13:44 ONETIME ONE Lidocaine HCl Confirm 08/21/19 13:45 Xylocaine-Mpf 1% Administered 08/21/19 13:46 Dose 10 ml .ROUTE .STK-MED ONE Departure - Departure Time of Disposition: 14:11 Disposition: Home, Self-Care 01 Condition: Good Clinical Impression: Laceration - Discharge Information Additional Instructions: The following information is given to patients seen in the emergency department who are being discharged to home. This information is to outline your options for follow-up care. We provide all patients seen in our emergency department with a follow-up referral. The need for follow-up, as well as the timing and circumstances, are variable depending upon the specifics of your emergency department visit. If you don't have a primary care physician on staff, we will provide you with a referral. We always advise you to contact your personal physician following an emergency department visit to inform them of the circumstance of the visit and for follow-up with them and/or the need for any referrals to a consulting specialist. The emergency department will also refer you to a specialist when appropriate. This referral assures that you have the opportunity for followup care with a specialist. All of these measure are taken in an effort to provide you with optimal care, which includes your followup. Under all circumstances we always encourage you to contact your private physician who remains a resource for coordinating your care. When calling for followup care, please make the office aware that this follow-up is from your recent emergency room visit. If for any reason you are refused follow-up, please contact the [facility] emergency department at and asked to speak to the emergency department charge nurse. keFlex as prescribed wound care is discussed suture removal 10-14 days return as needed as discussed
== END 2019-08-21 14:20 | disposition home or self-care (01) ==
LOC: MW.ED 13:12
DX: S71.111A Laceration without foreign body, right thigh, initial encounter (principal); Z88.0 Allergy status to penicillin; W26.0XXA Contact with knife, initial encounter; Y93.89 Activity, other specified
CPT/HCPCS: 12002; 99282; J2001

== ENCOUNTER 2019-09-01 07:23 | Emergency (ER) | payer BC, OTHER ==
[2019-09-01 07:39] VITALS: BP 113/71; PULSE 58
== END 2019-09-01 07:39 | disposition left against medical advice (07) ==
LOC: MW.ED 07:23
DX: Z53.21 Procedure and treatment not carried out due to patient leaving prior to being seen by health care provider (principal)